=== PATIENT | female | born 1995 | race Caucasian/White ===

== ENCOUNTER 2019-12-20 19:21 | Emergency (ER) | payer SELFPAY ==
[2019-12-20 19:38] VITALS: BP 95/75; PULSE 130; RESP 16; TEMP 39.1; O2SAT 100; BMI 23.6
--- NOTE | 2019-12-20 19:48 | W.ED.FEVER ---
HPI - Fever General: Chief Complaint: Fever Stated Complaint: fever, cough Time Seen by Provider: 12/20/19 19:46 History of Present Illness: HPI Narrative: Patient is a 24-year-old female who comes to the ED with fever. Symptoms started today. Patient is also having a nonproductive cough, body aches, sore throat and nasal drainage/congestion. Patient denies any breathing issues, abdominal pain, nausea, vomiting, diarrhea, hematuria, dysuria Patient denies any recent travel outside of [facility] in the last 3 months. Denies any contact with known COVID-19 positive patients. Associated symptoms: Reports nasal congestion; Deny abdominal pain, back/flank pain, chills, chest pain, diarrhea, dysuria, headache(s), nausea or vomiting Review of Systems Const: Reports: fever and body aches; Denies: chills or fatigue Eyes: Denies: change in vision or eye discomfort ENMT: Reports: throat pain, nasal discharge and nasal congestion; Denies: painful swallowing Card: Denies: chest pain, palpitations, edema, swelling of feet/ankles, shortness of breath on exertion or shortness of breath when lying down Resp: Reports: non-productive cough; Denies: shortness of breath or productive cough GI: Denies: abdominal pain, nausea, vomiting, diarrhea, constipation or blood in stool : Denies: flank pain, painful urination or blood in urine Musc: Denies: neck pain, back pain or extremity swelling Skin/Breast: Denies: rash or new lesion Neuro: Denies: headache, numbness in extremities or weakness in extremities [facility] PFSH: Social History Smoking and tobacco status: current every day smoker Physical Exam Narrative: EXAM NARRATIVE: Patient is a 24-year-old female who is sitting comfortably in the chair when I entered the room. She appears in no acute distress, respiratory distress or pain. Const: COMMON NORMALS: oriented x3 HENMT: COMMON NORMALS: normocephalic, TM's normal bilaterally and external nose normal HEAD & SCALP: normocephalic NOSE: external nose normal TYMPANIC MEMBRANE: TM's normal bilaterally MOUTH: oral and palatal mucosa normal THROAT: uvula midline and posterior oropharynx abnormal erythema Eye: COMMON NORMALS: PERRL and conjunctivae normal GENERAL EYE: normal appearance of both eyes CONJUNCTIVA: Yes conjunctivae normal PUPIL: Yes PERRL Neck/C-Spine: COMMON NORMALS: supple GENERAL: Yes normal visual inspection Lymph: LYMPHATIC: lymphadenopathy (Mild non-tender R & L anterior cervical nodes palpated.) Resp: COMMON NORMALS: normal respiratory effort, no retractions, no use of accessory muscles and clear to auscultation bilaterally AUSCULTATION: clear to auscultation bilaterally Cardio: COMMON NORMALS: regular rate, regular rhythm, S1 normal heart sound, S2 normal heart sound, no gallops, no clicks, no murmurs and peripheral pulses 2+ throughout RATE: regular rate RHYTHM: regular rhythm HEART SOUNDS: S1 normal and S2 normal PERIPHERAL PULSES: pulses 2+ throughout GI: COMMON NORMALS: normal to inspection, nondistended, normoactive bowel sounds, soft to palpation, non-tender and no masses PALPATION: Yes soft : COMMON NORMALS: Yes no CVA tenderness BLADDER/KIDNEY EXAM: Yes no CVA tenderness Back/Pelvis: COMMON NORMALS: no CVA tenderness Extremity: COMMON NORMALS: normal to inspection and normal capillary refill Neuro: COMMON NORMALS: oriented x3 and moves all extremities Skin: COMMON NORMALS: no rashes or lesions noted GENERAL SKIN EXAM: no rashes or lesions noted and dry skin Course ED course: I contacted the real estate agency licensee to run case by them for guidance on COVID-19 testing. After hearing patient's case they did not recommend getting COVID-19 testing. Vital Signs: Vital signs: Vital Signs Temperature 98.6 F 12/20/19 21:56 Pulse Rate 120 H 12/20/19 21:56 Respiratory Rate 16 12/20/19 21:56 Blood Pressure 91/58 12/20/19 21:56 Pulse Oximetry 98 12/20/19 21:56 MDM - Fever Lab Data: Attestation: I reviewed the patient's lab results. Labs: Lab Results 12/20/19 12/20/19 Range/Units 20:00 20:00 Influenza Type A A g Negative (Negative) POC Influenza B Ag Negative (Negative) Group A Strep Rapi d Negative (Negative) Imaging Data^: CXR: Attestation: I personally reviewed and interpreted this imaging study as follows: Radiologist's impression: [address] [place] [address] XRay Report Signed Patient: Lisa Pantoja Unit #: [id number] : 1995 Age/Sex: 24 / F ADM Date: 12/20/19 Loc: ER Room/Bed: Attending Dr: Ordering Provider/Ordering MD: Alejo Redmond Date of Service: 12/20/19 Procedure(s): XR chest 1V portable [id number] Accession Number(s): [id number] Report Number: [id number] PROCEDURE INFORMATION: Exam: XR Chest, 1 View Exam date and time: 12/20/2019 8:11 PM Age: 24 years old Clinical indication: Cough and fever and shortness of breath; Additional info: Fever and cough TECHNIQUE: Imaging protocol: XR of the chest Views: 1 view. COMPARISON: No relevant prior studies available. FINDINGS: Lungs: Unremarkable. No consolidation. Pleural space: Unremarkable. No pleural effusion. No pneumothorax. Heart/Mediastinum: Unremarkable. No cardiomegaly. Bones/joints: Unremarkable. XR/XR chest 1V portable [id number] IMPRESSION: No acute findings. Dictated By: Alan Reid Signed By: Alan Reid Signed Date/Time: 12/20/192027 DD/ 25 Discharge Plan Discharge Patient Disposition: Home, Self-Care Clinical Impression: Viral URI with cough Condition: Stable Prescriptions: No Action No Known Home Medications RF: 0 Discharge Orders: Discharge Order (Routine); Ordered 12/20/19 Ordered By: Alejo Redmond Discharge Diet: Regular Discharge Activity: Resume usual activity Patient Instructions: Viral Syndrome (ED), Upper Respiratory Infection - Adult Activity Restrictions/Additional Instructions: Follow-up with your PCP in 7 days for reevaluation. Take Tylenol or ibuprofen as needed for any fevers. Drink plenty fluids and stay hydrated. You can also take [id number] nasal decongestants to help with congestion and drainage. Stand Alone Forms: Work/School Release Discharge Date/Time: 12/20/19 22:08 Coding Level of Care Code ED Firer Boiler for Chg Fwd Exam Comprehensive
[2019-12-20] MEDS: acetaminophen 500 mg Tablet PO (20:29)
[2019-12-20 21:08] LABS: Rapid Strep A Test Negative (Negative)
[2019-12-20 21:19] VITALS: TEMP 37.9
[2019-12-20 21:20] LABS: Influenza A by IFA Negative (Negative); Influenza B by IFA Negative (Negative)
[2019-12-20 21:56] VITALS: BP 91/58; PULSE 120; RESP 16; TEMP 37; O2SAT 98
== END 2019-12-20 22:08 | disposition home or self-care (01) ==
PROVIDERS: Emergency Provider Physician Assistant
DX: J06.9 Acute upper respiratory infection, unspecified (principal); R05 Cough; F17.200 Nicotine dependence, unspecified, uncomplicated
CPT/HCPCS: 12345; 71045; 87081; 87804; 87880; 99281; 99283

== ENCOUNTER → 2020-03-05 13:09 | Outpatient (BNVA) | payer SELFPAY | PROVIDERS: Visit Provider Nurse Practitioner Family | DX: R53.83 Other fatigue (principal); R73.9 Hyperglycemia, unspecified | CPT/HCPCS: 80053; 82306; 82607; 83036; 84443; 85025 ==

== ENCOUNTER → 2020-04-13 10:21 | Outpatient (BNVA) | payer SELFPAY | PROVIDERS: Visit Provider Nurse Practitioner Family | DX: E03.9 Hypothyroidism, unspecified (principal); D72.829 Elevated white blood cell count, unspecified | CPT/HCPCS: 84439; 84443; 84481; 85025 ==

== ENCOUNTER → 2021-02-15 11:31 | Outpatient (BNVA) | payer OTHER, SELFPAY | PROVIDERS: Visit Provider Nurse Practitioner Family | DX: Z20.822 Contact with and (suspected) exposure to COVID-19 (principal) | CPT/HCPCS: 87635 ==

== ENCOUNTER → 2022-10-06 10:23 | Outpatient (BNVA) | payer SELFPAY | PROVIDERS: Visit Provider Family Medicine | DX: R53.83 Other fatigue (principal) | CPT/HCPCS: 80053; 80061; 82306; 82607; 83540; 84443; 85025 ==

== ENCOUNTER → 2023-01-24 11:40 | Outpatient (BNVA) | payer SELFPAY | PROVIDERS: Visit Provider Nurse Practitioner Family | DX: J02.9 Acute pharyngitis, unspecified (principal) | CPT/HCPCS: 87880 ==